=== PATIENT | female | born 2000 | race Hispanic/Latino ===

== ENCOUNTER 2021-01-11 12:36 | Emergency (ER) | payer MEDICARE ==
[~2021-01-11] VITALS: Ht 157.5 cm; Wt 79.4 kg
[2021-01-11] MEDS ORDERED: ACETAMINOPHEN 325 MG TAB PO ONE (13:30)
== END 2021-01-11 13:11 | disposition home or self-care (01) ==
LOC: ER 12:57
DX: K04.7 Periapical abscess without sinus (principal)
CPT/HCPCS: 99283